=== PATIENT | female | born 1980 | race Caucasian/White ===

== ENCOUNTER 2018-12-04 15:18 | Emergency (ER) | payer MEDICAID ==
[~2018-12-04 15:18] MED LIST: Lidocaine 1% 20 ML MDV ONE
[2018-12-04] MEDS ORDERED: Acetaminophen/HYDROcodone 325-5 MG Tab PO ONE (15:19)
[2018-12-04] MEDS ORDERED: Lidocaine 1% 20 ML MDV INJECT ONE (15:30)
[2018-12-04] MEDS ORDERED: Diphtheria,Pertussis(Acell),Tetanus Vaccine 0.5 ML Syringe IM ONE (15:30)
--- NOTE | 2018-12-04 15:39 | EDM.PDOC ---
ED HPI GENERAL MEDICAL PROBLEM - General Chief Complaint: Upper Extremity Injury/Pain Stated Complaint: "slammed finegr in car door" Time Seen by Provider: 12/04/18 15:19 Source of Information: Reports: Patient, Family History Limitations: Reports: No Limitations - History of Present Illness INITIAL COMMENTS - FREE TEXT/NARRATIVE: in with c/o shut her right hand 4th digit in a car door, has pain and a laceration, bleeding is controlled, laceration is abrox 2cm at the distal end. has normal ROM of the digit, no proximal finger or hand pain, TT is > 10 years Onset: Today Duration: Minutes: Location: Reports: Upper Extremity, Right Quality: Reports: Ache Severity: Mild Improves with: Reports: None Worsens with: Reports: None Context: Reports: Trauma Associated Symptoms: Reports: No Other Symptoms. Denies: Nausea/Vomiting Treatments SOFTWARE APPLICATIONS ENGINEER: Reports: Other (see below) (none) Right Finger-Ring Pain Score (Numeric/FACES): 10 - Related Data Allergies Allergy/AdvReac Type Severity Reaction Status Date / Time No Known Allergies Allergy Verified 12/04/18 15:19 Home Meds: Home Meds cephALEXin [Keflex] 500 mg PO QID 10 Days #40 cap 12/04/18 [Rx] Past Medical History Cardiovascular History: Reports: Hypertension Review of Systems - Review of Systems Review Of Systems: See Below Constitutional: Reports: No Symptoms. Denies: Chills, Fever Respiratory: Reports: No Symptoms Cardiovascular: Reports: No Symptoms GI/Abdominal: Reports: No Symptoms Musculoskeletal: Reports: Joint Pain Skin: Reports: Wound Neurological: Reports: No Symptoms. Denies: Numbness, Tingling Psychiatric: Reports: No Symptoms ED EXAM, GENERAL - Physical Exam Exam: See Below Exam Limited By: No Limitations General Appearance: Alert, WD/WN, Anxious, Obese Ears: Normal External Exam Nose: Normal Inspection Throat/Mouth: Normal Inspection, Normal Lips, Normal Voice, No Airway Compromise Head: Atraumatic, Normocephalic Neck: Normal Inspection, Supple, Non-Tender, Full Range of Motion Respiratory/Chest: No Respiratory Distress, Lungs Clear, Normal Breath Sounds Cardiovascular: Normal Peripheral Pulses, Regular Rate, Rhythm, No Murmur Peripheral Pulses: 2+: Radial (R) Back Exam: Normal Inspection, Full Range of Motion Extremities: Normal Range of Motion, Normal Capillary Refill. No: Normal Inspection (except for the right hand 4th digit), Non-Tender (except for the right hand 4th digit) Neurological: Alert, Oriented, Normal Cognition, Normal Gait, No Motor/Sensory Deficits Psychiatric: Normal Affect, Anxious Skin Exam: Warm, Dry, Intact, Normal Color ED TRAUMA EXTREMITY PROCEDURES - Laceration/Wound Repair Right Distal Digit - 4th (Ring) Lac/Wound Length In cm: 3 Appearance: Subcutaneous, Linear, Clean Distal NVT: Neuro & Vascular Intact, No Tendon Injury Anesthetic Type: Digital Local Anesthesia - Lidocaine (Xylocaine): 1% Plain Local Anesthetic Volume: 4cc Skin Prep: Saline, Sterile Drape Exploration/Debridement/Repair: Wound Explored, In a Bloodless Field, Explored to Base, No Foreign Material Found Closed With: Sutures Suture Size: 5-0 # of Sutures: 7 Suture Type: Nylon Tetanus Status Addressed: Other (was updated in the ED) Complications: No - Splinting Right 4th Digit Pre-Procedure NV Status: Normal Post-Procedure NV Status: Normal Splint Material: Aluminum-Foam Splint Design: Volar Applied & Form Fitted By: Provider Provider Post-Splint Application NV Check: NV Status Normal, Good Position Complications: Yes Course - Vital Signs Last Recorded V/S: Last Vital Signs Temp 37.7 C 12/04/18 15:19 Pulse 107 H 12/04/18 15:19 Resp 20 12/04/18 15:19 BP 189/105 H 12/04/18 15:19 Pulse Ox 98 12/04/18 15:19 - Orders/Labs/Meds Orders: Active Orders 24 hr Category Date Time Status Vaccines to be Administered [RC] PER UNIT ROUTINE Care 12/04/18 15:31 Active Fingers Fourth Digit Rt F8 [CR] Routine Exams 12/04/18 Ordered Meds: Medications Discontinued Medications Generic Name Dose Route Start Last Admin Trade Name Freq PRN Reason Stop Dose Admin Diphtheria/Tetanus/Acell Pertussis 0.5 ml 12/04/18 15:30 12/04/18 15:44 Adacel IM 12/04/18 15:31 0.5 ml .ONCE ONE Administration Lidocaine HCl Confirm 12/04/18 15:14 12/04/18 15:42 Xylocaine 1% Administered 12/04/18 15:15 Not Given Dose 20 ml .ROUTE .STK-MED ONE Lidocaine HCl 20 ml 12/04/18 15:30 12/04/18 15:20 Xylocaine 1% INJECT 12/04/18 15:31 20 ml ONETIME ONE Administration - Radiology Interpretation Free Text/Narrative:: tuft fx 4th digit right hand Departure - Departure Time of Disposition: 16:04 Disposition: Home, Self-Care 01 Condition: Good Clinical Impression: Open fracture of tuft of distal phalanx of finger, Laceration of finger of right hand, Hypertension - Discharge Information *PRESCRIPTION DRUG MONITORING PROGRAM REVIEWED*: Not Applicable *COPY OF PRESCRIPTION DRUG MONITORING REPORT IN PATIENT PARKER: Not Applicable Prescriptions: cephALEXin [Keflex] 500 mg PO QID 10 Days #40 cap Instructions: Crush Injury of the Hand, [id number], Laceration Care, Adult, [id number], Finger Fracture, Adult, [id number] Forms: ED Department Discharge Additional Instructions: keep wound clean and dry wear the splint as discussed keflex 500mg 4 x a day for 10 days elevate hand on two pillows norco 5/325mg 1 every 6 hours as need for pain 1 (take home pack) motrin 800mg every 8 hours as needed for pain follow up with family doctor this week, call in am for an appointment time for reevaluation of your fracture and possible referral to an orthopedic doctor as well as evaluation and treatment of your high blood pressure return to the ER sooner if worse or problem - Problem List & Annotations (1) Laceration of finger of right hand SNOMED Code(s): 517207769 Code(s): S61.219A - LACERATION W/O FB OF UNSP FINGER W/O DAMAGE TO NAIL, INIT Status: Acute Priority: High Current Visit: Yes Qualifiers: Encounter type: initial encounter (2) Open fracture of tuft of distal phalanx of finger SNOMED Code(s): 932267180 Code(s): S62.639B - DISP FX OF DISTAL PHALANX OF UNSP FINGER, INIT FOR OPN FX Status: Acute Priority: High Current Visit: Yes (3) Hypertension SNOMED Code(s): 16490190 Code(s): I10 - ESSENTIAL (PRIMARY) HYPERTENSION Status: Acute Priority: High Current Visit: Yes Qualifiers: Hypertension type: unspecified Qualified Code(s): I10 - Essential (primary ) hypertension - Problem List Review Problem List Initiated/Reviewed/Updated: Yes - My Orders Last 24 Hours: My Active Orders 12/04/18 Fingers Fourth Digit Rt F8 [CR] Routine 12/04/18 15:31 Vaccines to be Administered [RC] PER UNIT ROUTINE - Assessment/Plan Last 24 Hours: My Active Orders 12/04/18 Fingers Fourth Digit Rt F8 [CR] Routine 12/04/18 15:31 Vaccines to be Administered [RC] PER UNIT ROUTINE Plan: as above
[2018-12-04] MEDS ORDERED: Lidocaine 1% 20 ML MDV ONE (15:56)
[2018-12-04] MEDS ORDERED: cefTRIAXone 1 GM Vial IM ONE (16:03)
[2018-12-04] MEDS ORDERED: Take Home: Acetaminophen/HYDROcodone 325-5 MG, 2 Tab Pack PO ONE (16:14)
== END 2018-12-04 16:31 | disposition home or self-care (01) ==
LOC: CC.ED 15:18
DX: S62.664B Nondisplaced fracture of distal phalanx of right ring finger, initial encounter for open fracture (principal); I10 Essential (primary) hypertension; Z23 Encounter for immunization; W22.8XXA Striking against or struck by other objects, initial encounter
CPT/HCPCS: 12002; 73140-F8; 90471; 90715; 96372; 99283-25; A9270-GY; J0696; J2001